=== PATIENT | male | born 1945 | race Caucasian/White ===

== ENCOUNTER → 2017-05-24 | Outpatient (CLI) | payer OTHER ==
[~2017-05-24] MED LIST: ACETAMINOPHEN325 M1 PO; ALLFEN400 MG PO; ALPRAZOLAM0.25 MG PO; ATORVASTATIN CA20 MG PO; B-1100 M1 PO; CALCIUM 1,0001 EACH PO; CASODEX 50MG TA50 MG PO; CYCLOBENZAPRINE10 M1 PO; DESYREL 100MG100 MG PO; DOCUSATE SODIUM1 TA3 PO; DULCOLAX S10 MG/SUPP RC; ELIGARD45 MG SC; FOLIC ACID1 MG PO; IPRATROPIUM BROM3 M1 IH; LEVAQUIN 750MG750 M1 PO; MEGACE 40MG40 MG/TAB PO; MIRALAX17 GM PO; MS CONTIN15 MG PO; MULTI-VITAMIN1 EACH PO; PREDNISONE20 M1 PO; PROSCAR PO; SYMBICORT1 AE3 IH; TUMS300 MG PO; VITAMIN B12 781 TAB PO; XTANDI40 MG PO; ZOLOFT 50MG50 MG PO
[2017-05-24 14:32] LABS: HEMATOCRIT 43.6 % (42.0-52.0); HEMOGLOBIN 13.5 g/dL (13.5-18.0); MEAN CELL VOLUME 92 fl (78-100); MEAN CORPUSCULAR HEMOGLOBIN 29 pg (27-31); MEAN CORPUSCULAR HGB CONC 31 g/dL (33-37); MEAN PLATELET VOLUME 9.8 fl (7.4-10.4); PLATELET COUNT 266 K/mm3 (130-400); RED BLOOD COUNT 4.74 M/mm3 (4.20-5.60); RED CELL DISTRIBUTION WIDTH 14.4 % (11.5-14.5); WHITE BLOOD COUNT 18.6 K/mm3 (4.8-10.8)
[2017-05-24 14:50] LABS: BUN/CREATININE RATIO 31.9 (6.0-26.0); CALCIUM 9.4 mg/dL (8.4-10.2); POTASSIUM 4.8 mmol/L (3.6-5.0)
[2017-05-24 14:57] LABS: LYMPHOCYTE 2 % (20-51); MONOCYTE 2 % (3-10); NEUTROPHILS 96 % (42-75)
== END ==
LOC: RAD 14:11
PROVIDERS: Family Medicine
DX: R09.02 Hypoxemia (principal)

== ENCOUNTER 2017-05-25 13:49 | Emergency (ER) | payer OTHER ==
[2017-05-25] MEDS ORDERED: ACETAMINOPHEN325 M1 PO (14:11)
[2017-05-25] MEDS ORDERED: TUMS300 MG PO (14:11)
[2017-05-25] MEDS ORDERED: ATORVASTATIN CA20 MG PO (14:11)
[2017-05-25] MEDS ORDERED: CASODEX 50MG TA50 MG PO (14:12)
[2017-05-25] MEDS ORDERED: CYCLOBENZAPRINE10 M1 PO (14:12)
[2017-05-25] MEDS ORDERED: CALCIUM 1,0001 EACH PO (14:12)
[2017-05-25] MEDS ORDERED: VITAMIN B12 781 TAB PO (14:12)
[2017-05-25] MEDS ORDERED: DULCOLAX S10 MG/SUPP RC (14:13)
[2017-05-25] MEDS ORDERED: IPRATROPIUM BROM3 M1 IH ×2 (14:13→14:14)
[2017-05-25] MEDS ORDERED: ELIGARD45 MG SC (14:14)
[2017-05-25] MEDS ORDERED: XTANDI40 MG PO (14:15)
[2017-05-25] MEDS ORDERED: FOLIC ACID1 MG PO (14:16)
[2017-05-25] MEDS ORDERED: ALLFEN400 MG PO (14:16)
[2017-05-25] MEDS ORDERED: MEGACE 40MG40 MG/TAB PO (14:17)
[2017-05-25] MEDS ORDERED: LEVAQUIN 750MG750 M1 PO (14:17)
[2017-05-25] MEDS ORDERED: MIRALAX17 GM PO (14:18)
[2017-05-25 14:59] LABS: HEMOGLOBIN 12.8 g/dL (13.5-18.0); MEAN CELL VOLUME 93 fl (78-100); MEAN CORPUSCULAR HEMOGLOBIN 29 pg (27-31); MEAN CORPUSCULAR HGB CONC 31 g/dL (33-37); MEAN PLATELET VOLUME 10.2 fl (7.4-10.4); PLATELET COUNT 256 K/mm3 (130-400); RED BLOOD COUNT 4.42 M/mm3 (4.20-5.60); RED CELL DISTRIBUTION WIDTH 14.5 % (11.5-14.5); WHITE BLOOD COUNT 16.9 K/mm3 (4.8-10.8)
[2017-05-25 15:11] LABS: ALBUMIN 3.6 g/dL (3.5-5.0); BUN/CREATININE RATIO 40.7 (6.0-26.0); CALCIUM 9.6 mg/dL (8.4-10.2); POTASSIUM 4.7 mmol/L (3.6-5.0); TOTAL BILIRUBIN 0.3 mg/dL (0.2-1.3); TOTAL PROTEIN 7.3 g/dL (6.3-8.2)
[2017-05-25] MEDS ORDERED: MULTI-VITAMIN1 EACH PO (15:13)
[2017-05-25] MEDS ORDERED: MS CONTIN15 MG PO (15:13)
[2017-05-25] MEDS ORDERED: PROSCAR PO (15:14)
[2017-05-25] MEDS ORDERED: PREDNISONE20 M1 PO (15:14)
[2017-05-25] MEDS ORDERED: DOCUSATE SODIUM1 TA3 PO (15:14)
[2017-05-25] MEDS ORDERED: SYMBICORT1 AE3 IH (15:15)
[2017-05-25] MEDS ORDERED: B-1100 M1 PO (15:15)
[2017-05-25] MEDS ORDERED: DESYREL 100MG100 MG PO (15:16)
[2017-05-25] MEDS ORDERED: ALPRAZOLAM0.25 MG PO (15:16)
[2017-05-25] MEDS ORDERED: ZOLOFT 50MG50 MG PO (15:16)
[2017-05-25 15:43] LABS: LYMPHOCYTE 4 % (20-51); MONOCYTE 1 % (3-10); NEUTROPHILS 95 % (42-75)
[2017-05-25 15:44] LABS: URINE APPEARANCE CLEAR; URINE BILIRUBIN NEGATIVE (NEGATIVE); URINE BLOOD NEGATIVE (NEGATIVE); URINE COLOR YELLOW; URINE GLUCOSE NEGATIVE (NEGATIVE); URINE KETONE NEGATIVE (NEGATIVE); URINE LEUKOCYTE ESTERASE NEGATIVE (NEGATIVE); URINE NITRATE NEGATIVE (NEGATIVE); URINE PROTEIN(semi-quant) TRACE mg/dL (NEGATIVE); URINE UROBILINOGEN NORMAL (NORMAL); URINE WBC 0-1 /hpf (0-3)
[2017-05-25 15:45] LABS: URINE MUCUS PRESENT (NOT PRESENT)
[2017-05-25 17:34] VITALS: BP 154/88
== END 2017-05-25 17:32 | disposition home or self-care (01) ==
LOC: ED 13:49
PROVIDERS: Physician Assistant
DX: J18.9 Pneumonia, unspecified organism (principal); J44.0 Chronic obstructive pulmonary disease with (acute) lower respiratory infection; F43.10 Post-traumatic stress disorder, unspecified; Z87.891 Personal history of nicotine dependence; Z88.0 Allergy status to penicillin
CPT/HCPCS: J1956

== ENCOUNTER → 2017-06-14 | Outpatient (CLI) | payer OTHER ==
[2017-05-25 17:34] VITALS: BP 154/88
== END ==
LOC: RAD 15:22
DX: R09.02 Hypoxemia (principal); Z88.0 Allergy status to penicillin

== ENCOUNTER 2017-06-24 10:14 | Emergency (ER) | payer OTHER ==
[2017-06-24] MEDS ORDERED: AMBIEN5 M1 PO (10:33)
[2017-06-24] MEDS ORDERED: CASODEX 50MG TA50 MG PO (10:34)
[2017-06-24] MEDS ORDERED: VITAMIN B-12500 MC2 PO (10:34)
[2017-06-24] MEDS ORDERED: FOLIC ACID1 MG PO (10:36)
[2017-06-24] MEDS ORDERED: XTANDI40 MG PO (10:36)
[2017-06-24] MEDS ORDERED: MUCINEX100 MG PO (10:37)
[2017-06-24] MEDS ORDERED: LOPRESSOR 225 MG/TAB PO (10:39)
[2017-06-24] MEDS ORDERED: OXYCODONE PO (10:40)
[2017-06-24] MEDS ORDERED: PREDNISONE20 MG PO (10:41)
[2017-06-24 11:09] LABS: EOS # 0.2 (0.04-0.40); EOS % 1.1 % (0.0-4.0); HEMATOCRIT 44.3 % (42.0-52.0); HEMOGLOBIN 14.1 g/dL (13.5-18.0); LYMPH# 2.4 (1.50-4.00); MEAN CELL VOLUME 91 fl (78-100); MEAN CORPUSCULAR HEMOGLOBIN 29 pg (27-31); MEAN CORPUSCULAR HGB CONC 32 g/dL (33-37); MEAN PLATELET VOLUME 9.7 fl (7.4-10.4); MONO # 1.4 (0.20-0.80); PLATELET COUNT 224 K/mm3 (130-400); RED BLOOD COUNT 4.88 M/mm3 (4.20-5.60); RED CELL DISTRIBUTION WIDTH 14.9 % (11.5-14.5); WHITE BLOOD COUNT 15.6 K/mm3 (4.8-10.8)
[2017-06-24 11:10] LABS: NEU # 11.5 (1.40-6.50)
[2017-06-24 11:20] LABS: BUN/CREATININE RATIO 40.2 (6.0-26.0); CALCIUM 9.8 mg/dL (8.4-10.2); POTASSIUM 4.1 mmol/L (3.6-5.0)
[2017-06-24 12:11] LABS: ERYTHROCYTE SEDIMENTATION RATE 35 mm/hr (0-20)
[2017-06-24] MEDS ORDERED: CARAFATE1 GM/10 M1 PO (12:58)
[2017-06-24] MEDS ORDERED: DURAGESIC50 MCG/PAT TD (13:16)
[2017-06-24 13:59] VITALS: BP 158/93
== END 2017-06-24 13:50 | disposition home or self-care (01) ==
LOC: ED 10:14
PROVIDERS: Family Medicine
DX: M54.2 Cervicalgia (principal); R51 Headache; C61 Malignant neoplasm of prostate; J44.9 Chronic obstructive pulmonary disease, unspecified; F43.10 Post-traumatic stress disorder, unspecified; C79.51 Secondary malignant neoplasm of bone; G89.29 Other chronic pain; M54.9 Dorsalgia, unspecified
CPT/HCPCS: J1885

== ENCOUNTER → 2017-07-09 | Outpatient (CLI) | payer OTHER ==
[2017-06-24 13:59] VITALS: BP 158/93
[~2017-07-09] MED LIST changes: +AMBIEN5 M1 PO; +CARAFATE1 GM/10 M1 PO; +DURAGESIC50 MCG/PAT TD; +LOPRESSOR 225 MG/TAB PO; +MUCINEX100 MG PO; +OXYCODONE PO; +PREDNISONE20 MG PO; +VITAMIN B-12500 MC2 PO
[2017-07-09 07:12] LABS: ALBUMIN 3.5 g/dL (3.5-5.0); ALT/SGPT 28 U/L (21-72); AST-SGOT 14 U/L (17-59); BUN/CREATININE RATIO 54.5 (6.0-26.0); CALCIUM 9.6 mg/dL (8.4-10.2); CARBON DIOXIDE 35 mmol/L (22-30); GLUCOSE 146 mg/dL (75-110); POTASSIUM 4.3 mmol/L (3.6-5.0); SODIUM 140 mmol/L (137-145); TOTAL BILIRUBIN < 0.1 mg/dL (0.2-1.3); TOTAL PROTEIN 6.5 g/dL (6.3-8.2)
[2017-07-09 07:13] LABS: HEMATOCRIT 43.6 % (42.0-52.0); HEMOGLOBIN 13.6 g/dL (13.5-18.0); MEAN PLATELET VOLUME 9.9 fl (7.4-10.4); RED BLOOD COUNT 4.72 M/mm3 (4.20-5.60); RED CELL DISTRIBUTION WIDTH 15.2 % (11.5-14.5); WHITE BLOOD COUNT 14.1 K/mm3 (4.8-10.8)
== END ==
LOC: LAB 06:36
PROVIDERS: Family Medicine
DX: C61 Malignant neoplasm of prostate (principal)